=== PATIENT | male | born 1995 | race African-American/Black ===

== ENCOUNTER 2023-09-05 04:19 | Emergency (ER) | payer MEDICAID, SELFPAY ==
[~2023-09-05] VITALS: Ht 200.7 cm; Wt 88.6 kg
[2023-09-05 06:50] LABS: HEMATOCRIT 40.1 % (42.0-52.0); HEMOGLOBIN 13.5 g/dl (13.5-17.5); MEAN CORPUSCULAR HEMOGLOBIN 35.2 pg (27.0-33.0); MEAN CORPUSCULAR HGB CONC 33.7 g/dl (32.0-36.5); MEAN CORPUSCULAR VOLUME 104.4 fl (80.0-96.0); RED BLOOD COUNT 3.84 10^6/uL (4.30-6.10); WHITE BLOOD COUNT 2.7 10^3/uL (4.0-10.0)
[2023-09-05 07:07] LABS: PLATELET COUNT, AUTOMATED 50 10^3/uL (150-450)
[2023-09-05] MEDS ORDERED: NS 1,000 ML IV ONE (07:10)
[2023-09-05 07:37] LABS: BLOOD UREA NITROGEN 8 MG/DL (9-23); CALCIUM LEVEL 8.4 MG/DL (8.5-10.1); CARBON DIOXIDE LEVEL 26 MMOL/L (20-31); CHLORIDE LEVEL 106 MMOL/L (98-107); CREATININE FOR GFR 0.59 MG/DL (0.70-1.30); ETHYL ALCOHOL (ETHANOL) 0.522 % (0.000-0.010); GLOMERULAR FILTRATION RATE > 60.0 (>60); GLUCOSE, FASTING 70 MG/DL (60-100); MAGNESIUM LEVEL 2.1 MG/DL (1.8-2.4); POTASSIUM SERUM 3.4 MMOL/L (3.5-5.1); SODIUM LEVEL 145 MMOL/L (136-145)
[2023-09-05 07:55] LABS: ALBUMIN 3.9 G/DL (3.2-5.2); ALKALINE PHOSPHATASE 230 U/L (46-116); ALT/SGPT 172 U/L (7.0-40); AST/SGOT 467 U/L (<34); BILIRUBIN,DIRECT 0.2 MG/DL (<0.4); BILIRUBIN,TOTAL 0.4 MG/DL (0.3-1.2); SALICYLATE LEVEL < 3.0 MG/DL (<30); TOTAL PROTEIN 7.3 G/DL (5.7-8.2)
[2023-09-05 08:14] LABS: AMPHETAMINES LEVEL URINE NEGATIVE (NEGATIVE); BARBITURATES URINE NEGATIVE (NEGATIVE); COCAINE METABOLITE URINE NEGATIVE (NEGATIVE)
[2023-09-05 08:15] LABS: BENZODIAZEPINES URINE NEGATIVE (NEGATIVE); CANNABINOIDS URINE NEGATIVE (NEGATIVE); METHADONE URINE NEGATIVE (NEGATIVE); OPIATES URINE NEGATIVE (NEGATIVE); PHENCYCLIDINE URINE NEGATIVE (NEGATIVE)
[2023-09-05] MEDS ORDERED: MED REC IN PROGRESS XX SCH (08:30)
[2023-09-05] MEDS ORDERED: FOLIC ACID 1MG TAB PO SCH (09:00)
[2023-09-05] MEDS ORDERED: THIAMINE 100 MG TAB PO SCH (09:00)
[2023-09-05] MEDS ORDERED: D5W/0.45% SODIUM CHLORIDE 1,000 ML IV SCH (09:00)
[2023-09-05] MEDS ORDERED: MULTIVITAMINS/MINERALS THERAP 1 TAB PO SCH (09:00)
[2023-09-05 09:02] LABS: ABG HCO3 22.5 MMOL/L (22.0-26.0); ABG O2 SATURATION 96.3 % (95.0-99.0); ABG PARTIAL PRESSURE CO2 42.2 mmHg (35.0-45.0); ABG PARTIAL PRESSURE O2 101.5 mmHg (75.0-100.0); ABG STANDARD HCO3 21.9 MMOL/L. (22.0-26.0); ABG TOTAL CO2 23.8 MMOL/L (22.0-29.0); ABG pH (ARTERIAL) 7.345 UNITS (7.350-7.450)
[2023-09-05 09:26] LABS: HEPATITIS B CORE ANTIBODY IGM NEGATIVE (NEGATIVE); HEPATITIS C VIRUS ABY INDEX 0.02 INDEX (<0.8)
[2023-09-05] MEDS ORDERED: MED REC CURRENTLY UNOBTAINABLE XX SCH (10:30)
[2023-09-05] MEDS ORDERED: HOME MED LIST COMPLETE! XX SCH (14:30)
[2023-09-05] MEDS ORDERED: LORazepam 2 MG TAB PO PRN (14:35)
[2023-09-05 15:45] VITALS: BP 124/70; TEMP 97.2; O2SAT 98
== END 2023-09-05 16:26 | disposition home or self-care (01) ==
LOC: M ED 04:19
DX: F10.129 Alcohol abuse with intoxication, unspecified (principal); D72.819 Decreased white blood cell count, unspecified; D69.6 Thrombocytopenia, unspecified; Z88.8 Allergy status to other drugs, medicaments and biological substances